=== PATIENT | male | born 1970 | race Caucasian/White ===

== ENCOUNTER 2021-05-27 05:36 | Day surgery (SDC) | payer BC ==
[2021-05-27] MEDS ORDERED: Acetaminophen 500 MG Tab PO ONE (06:30)
[2021-05-27] MEDS ORDERED: Dextrose 5%-Lactated Ringers 1,000 ML IV SCH (06:30)
[2021-05-27] MEDS ORDERED: Bupivacaine 0.5% 50 ML MDV ONE (06:33)
[2021-05-27] MEDS ORDERED: Lidocaine 1% with EPINEPHrine 1:100,000 50 ML MDV ONE (06:33)
[2021-05-27] MEDS ORDERED: Meropenem 500 MG SDV ONE (06:54)
[2021-05-27] MEDS ORDERED: Albuterol/Ipratropium 3.0-0.5 MG/3 ML Neb Soln NEB ONE (07:00)
[2021-05-27] MEDS ORDERED: Rocuronium 50 MG/5 ML Vial ONE (07:04)
[2021-05-27] MEDS ORDERED: Ondansetron 4 MG/2 ML SDV ONE (07:04)
[2021-05-27] MEDS ORDERED: Succinylcholine 200 MG/10 ML MDV ONE (07:04)
[2021-05-27] MEDS ORDERED: Glycopyrrolate 0.2 MG/ML 5 ML MDV ONE (07:04)
[2021-05-27] MEDS ORDERED: Propofol 200 MG/20 ML SDV ONE (07:04)
[2021-05-27] MEDS ORDERED: Dexamethasone 4 MG/ML SDV ONE (07:04)
[2021-05-27] MEDS ORDERED: Neostigmine Methylsulfate 1 MG/ML 5 ML Syringe ONE (07:04)
[2021-05-27] MEDS ORDERED: Meropenem 500 MG in Sodium Chloride 0.9% 50 ML IV ONE (07:15)
[2021-05-27] MEDS ORDERED: fentaNYL 250 MCG/5 ML SDV ONE ×2 (07:16→07:29)
[2021-05-27] MEDS ORDERED: Sugammadex Sodium 200 MG/2 ML VIAL ONE (08:00)
--- NOTE | 2021-05-28 08:21 | OR ---
DATE OF PROCEDURE: 05/27/2021 SURGEON: Gamal Haywood MD PREOPERATIVE DIAGNOSES: Abscess and associated infection, left perineal area. POSTOPERATIVE DIAGNOSES: Necrotizing infection, left perineal area, with an associated abscess. PROCEDURES: Exploration of left perineal area with: 1. Drainage of abscess (53878). 2. Debridement of area of necrotizing infection (30103). ANESTHESIA: General. INDICATIONS FOR PROCEDURE: This is a 50-year-old male presenting with a clinically evident abscess in the left perineal area, which is lateral to the scrotal region. He has had these in the past and has undergone drainages and debridements. Plan is to proceed with drainage and debridement of the area. Potential risks, including bleeding, infection, need for more extensive operative procedure if a more extensive area of necrotic infection is identified than is presently expected, were gone over, and the patient wishes to proceed. DETAILS OF PROCEDURE: The patient was taken to the operating room and placed in a lithotomy position after general endotracheal anesthetic had been induced. The area around the left perineal region was then prepped and draped. A vertically oriented elliptical incision was then made, excising some of the overlying skin. The abscess cavity was then entered. Cultures were obtained and gram-stain on these are pending. This was associated with a fairly extensive area of necrotic soft tissue. This extended down to and included some of the superficial fascia and musculature. This was all debrided back down to what was a clearly viable plane, and at that point, the wound was anesthetized with 1% lidocaine mixed with Marcaine and the wound packed with iodoform gauze. The patient was taken to the recovery room in satisfactory condition. The area of debridement measured around 5 cm in total maximal length. Gamal Haywood MD /[id number]
== END 2021-05-27 10:08 | disposition home or self-care (01) ==
LOC: JP.SDS 05:36
PROVIDERS: ATTEND Surgery
DX: L02.215 Cutaneous abscess of perineum (principal); L03.315 Cellulitis of perineum; F17.210 Nicotine dependence, cigarettes, uncomplicated; E66.9 Obesity, unspecified; Z01.812 Encounter for preprocedural laboratory examination; Z20.822 Contact with and (suspected) exposure to COVID-19; Z98.890 Other specified postprocedural states; Z90.49 Acquired absence of other specified parts of digestive tract; Z88.8 Allergy status to other drugs, medicaments and biological substances
CPT/HCPCS: 10061; 11004; 36415; 80053; 84100; 85027; 87070; 87075; 87205; 87635; A9270; J0330; J1100; J2185; J2405; J2704; J2710; J3010; J3490; J7121; J7620-GY; U0002